=== PATIENT | male | born 1970 | race African-American/Black ===

== ENCOUNTER 2018-07-28 10:11 | Emergency (ER) ==
[2018-07-28 10:20] VITALS: BP 138/88; TEMP 98.1; BMI 20.8
--- NOTE | 2018-07-28 10:38 | ED.PDOC ---
General ED Provider: Dr. PAM RICHARDSON Chief Complaint: Eye Problem Stated Complaint: Eyes reddened. States was using diluted bleach solution to wash the floors of his house yesterday evening. Note to smell bleach odor in air. [place] that eyes were iritated.Rinsed eyes with water. Seemed worsed this morning so used Visine solution to instill in each eye . Eyes seem better now. Gross exam fails to reveal significant erythrema. Has normal EOM/visual trackiing. No obvious photophobia Time Seen by Physician: 10:20 Mode of Arrival: Walk-In Information Source: Patient Exam Limitations: No limitations Nursing and Triage Documentation Reviewed and Agree: Yes Does patient meet sepsis criteria?: No System Inflammatory Response Syndrome: Not Applicable Sepsis Protocol: For patient's 13 years and over: Temp is 96.8 and below OR 101 and greater Pulse >90 BPM Resp >20/minute Acutely Altered Mental Status Are patient's symptoms suggestive of a new infection, such as: -Pneumonia -Skin, Soft Tissue -Endocarditis -UTI -Bone, Joint Infection -Implantable Device -Acute Abdominal Infection -Wound Infection -Meningitis -Blood Stream Catheter Infection -Unknown EENT Complaint Exam - Eye Complaint/Exam Onset/Duration: 24 hrs Symptoms Are: Still present (but improved) Timing: Constant Initial Severity: Moderate Current Severity: Mild Location: Bilateral Character: Reports: Dull, Foreign body sensation Aggravating: Reports: Light Alleviating: Reports: Eye drops Associated Signs and Symptoms: Reports: Photophobia, Vision impairment (Chronic visual impairment OD) Penetrating Injury Risk Factors: None Globe Rupture Risk Factors: None Acute Glaucoma Risk Factors: None Optic Artery Occlusion Risk Factors: None Visual Acuity Right Eye: 20/20 Visual Acuity Left Eye: 20/70 Visual Field: Normal Extraocular Movement: Normal Orbit Findings: Normal Globe Findings: Intact Lid Findings: Normal Conjunctival Findings: Red Corneal Findings: Clear Fundi: Normal Slit Lamp Used: No Differential Diagnoses: Conjunctivitis, Other (chemical exposure) Review of Systems - Review Of Systems Constitutional: Reports: No symptoms Eyes: Reports: No symptoms, Foreign body sensation, Inflammation (Resolution after irrigation ) Respiratory: Reports: No symptoms Cardiac: Reports: No symptoms GI: Reports: No symptoms : Reports: No symptoms Musculoskeletal: Reports: No symptoms Skin: Reports: No symptoms Neurological: Reports: No symptoms Endocrine: Reports: No symptoms Hematologic/Lymphatic: Reports: No symptoms All Other Systems: Reviewed and Negative Past Medical History - Past Medical History Previously Healthy: Yes Endocrine: Reports: None Cardiovascular: Reports: None Respiratory: Reports: None Hematological: Reports: None Gastrointestinal: Reports: None Genitourinary: Reports: None Neuro/Psych: Reports: None Musculoskeletal: Reports: None Cancer: Reports: None - Surgical History General Surgical History: Reports: None - Family History Family History: Reports: None - Social History Smoking Status: Former smoker Hx Substance Use: No Alcohol Screening: None - Immunizations Tetanus Shot up to Date: Yes Physical Exam - Physical Exam Appearance: Well-appearing, No pain distress, Well-nourished, Thin Ill-appearing: None Pain Distress: None Eyes: ELA, EOMI, Conjunctiva inflammed, Right pupil size (Normal -equal) ENT: Ears normal, Nose normal, Oropharynx normal Neck: Supple Respiratory: Airway patent, Breath sounds clear, Breath sounds equal, Respirations nonlabored Cardiovascular: RRR, Pulses normal, No rub, No murmur GI/: Soft, Nontender, No masses, Bowel sounds normal, No Organomegaly Musculoskeletal: Normal strength, ROM intact, No edema, No calf tenderness Skin: Warm, Dry, Normal color Neurological: Sensation intact, Motor intact, Reflexes intact, Cranial nerves intact, Alert, Oriented Psychiatric: Affect appropriate, Mood appropriate Procedures - Eye Procedure Eye Irrigated: Yes (Fluorscein dye exam -wnl) Critical Care Note - Critical Care Note Total Time (mins): 0 Course - Course Vital Signs: Temp Pulse Resp BP Pulse Ox 07/28/18 10:12 98.1 F 68 20 138/88 98 Departure - Departure Time of Disposition: 11:00 Disposition: HOME SELF-CARE Discharge Problem: Chemical conjunctivitis of both eyes Instructions: Conjunctivitis (ED) Condition: Good Pt referred to PMD for follow-up: Yes (as needed) IPMP verified?: No Additional Instructions: Irrigate with Visine daily as needed for additional discomfort Eye irrigation as needed Follow up as needed Disposition Discussed With: Family
[2018-07-28] MEDS ORDERED: FUL-GLO OP STA (10:51)
[2018-07-28] MEDS ORDERED: EYE-STREAM OP STA (10:52)
== END 2018-07-28 11:21 | disposition home or self-care (01) ==
LOC: ED 10:11
DX: H10.213 Acute toxic conjunctivitis, bilateral (principal)
CPT/HCPCS: 99282